=== PATIENT | female | born 1930 | race Caucasian/White ===

== ENCOUNTER 2021-04-16 20:47 | Emergency (ER) | payer MEDICARE ==
[~2021-04-16] VITALS: Ht 152.4 cm; Wt 45.0 kg
[2021-04-16 23:00] VITALS: BP 137/87
== END 2021-04-16 23:02 | disposition home or self-care (01) ==
LOC: ER 20:47
DX: S05.12XA Contusion of eyeball and orbital tissues, left eye, initial encounter (principal); R55 Syncope and collapse; W18.30XA Fall on same level, unspecified, initial encounter; Y93.89 Activity, other specified; Y92.89 Other specified places as the place of occurrence of the external cause; Y99.8 Other external cause status
CPT/HCPCS: 99284